=== PATIENT | female | born 1995 | race Caucasian/White ===

== ENCOUNTER → 2021-12-02 01:24 | Outpatient (CLI) | payer OTHER, SELFPAY ==
[2021-12-02 11:08] LABS: SARS-CoV-2 RNA PCR Negative
== END ==
PROVIDERS: Visit Provider Surgery
DX: Z01.812 Encounter for preprocedural laboratory examination (principal); Z20.822 Contact with and (suspected) exposure to COVID-19
CPT/HCPCS: C9803; U0003; U0005

== ENCOUNTER 2021-12-05 00:52 | Day surgery (SDC) | payer OTHER, SELFPAY ==
[2021-12-01 08:34] VITALS: BMI 23.4
--- NOTE | 2021-12-01 08:47 | PC.NURSE ---
Report to the Outpatient Waiting Room, entrance under the green pavilion located off [facility], at time on date . OR Time: . - You and your visitor will be asked a series of questions to screen for COVID 19 for your protection. - A mask is required within the hospital. Preoperative COVID Testing Requirements: No COVID Test needed if: (proof is required; if not received patient will have Rapid Test prior to entry) - Patient has received COVID Vaccine at least 14 days prior to procedure date or - Patient has positive COVID test result within last 90 days of surgery date. COVID Test needed if above criteria is not met If not COVID vaccinated a COVID test must be conducted within 72 hours of surgery and patient is asked to isolate self from time of testing until procedure. You will go to the [facility] for your COVID testing. The [facility] is located at the corner of [address] [facility]. You will only be called if COVID results are positive and your surgeon may reschedule your elective surgery date. Patients may have clear liquids (water, carbonated beverages, clear teas, apple juice) until 3 hours prior to surgery with a maximum of 20 ounces. - No food from midnight until time of surgery - Infants may have breast milk until 4 hours before surgery, infant formula 6 hours prior to surgery. - Children will be allowed to drink immediately following surgery. If applicable, please bring a bottle or sippy cup to assist with drinking. Juice, water, soda, and popsicles are readily available. For infants on formula, please bring formula the day of surgery. Pacifiers are allowed. Take the following medications with a SIP of water the morning of surgery: Medications to discontinue per physician Date to take last dose Please no make-up, nail croatian, hairspray, perfume, deodorant, or body powder the day of surgery. No jewelry (including any body piercings) or valuables the day of surgery, leave them at home. Please take a shower or bath the night before, or the morning of, surgery with an antibacterial soap. Wear comfortable, loose fitting clothing. Children are encouraged to wear pajamas. - Jewelry must be removed prior to entering the operating room. Rings and piercings that are not removed may be cut off. - The hospital will not accept responsibility for valuables. - Please leave all valuables, including medications, at home the day of surgery. If you are going home after surgery, a licensed vending route driver must drive you home. - NO public transportation without another adult. - We recommend that an adult stay with you for 24 hours following discharge. - We also recommend that you do not drive, make important decision, drink alcoholic beverages, or take any drugs that were not prescribed by your health care provider for at least 24 hours after your discharge time. For Pediatric surgeries, we recommend two adults accompany the child home (only one inside the building at this time). One visitor will be allowed to accompany the patient into the hospital. Patients visitor will be instructed to remain with patient at all times or leave the building. We will allow the visitor to come back to the postoperative area when patient is ready. Follow any additional instructions given to you from your surgeon. Telephone instructions given to and asked if any additional questions and then verbalized understanding. Patient advised to call surgeon office or pre surgery nurse liaison [phone] if any additional questions.
--- NOTE | 2021-12-01 10:29 | PC.NURSE ---
Report to the Outpatient Waiting Room, entrance under the green pavilion located off [facility], at time 1100 on date 12/05/21. OR Time:1300. - You and your visitor will be asked a series of questions to screen for COVID 19 for your protection. - A mask is required within the hospital. Preoperative COVID Testing Requirements: No COVID Test needed if: (proof is required; if not received patient will have Rapid Test prior to entry) - Patient has received COVID Vaccine at least 14 days prior to procedure date or - Patient has positive COVID test result within last 90 days of surgery date. COVID Test needed if above criteria is not met If not COVID vaccinated a COVID test must be conducted within 72 hours of surgery and patient is asked to isolate self from time of testing until procedure. You will go to the [facility] for your COVID testing. [facility] is located at the corner of [address] [facility]. You will only be called if COVID results are positive and your surgeon may reschedule your elective surgery date. Patients may have clear liquids (water, carbonated beverages, clear teas, apple juice) until 3 hours prior to surgery with a maximum of 20 ounces. - No food from midnight until time of surgery - Infants may have breast milk until 4 hours before surgery, infant formula 6 hours prior to surgery. - Children will be allowed to drink immediately following surgery. If applicable, please bring a bottle or sippy cup to assist with drinking. Juice, water, soda, and popsicles are readily available. For infants on formula, please bring formula the day of surgery. Pacifiers are allowed. Take the following medications with a SIP of water the morning of surgery: n/a Medications to discontinue per physician culturelle Date to take last dose 12/02/21 Please no make-up, nail persian, hairspray, perfume, deodorant, or body powder the day of surgery. No jewelry (including any body piercings) or valuables the day of surgery, leave them at home. Please take a shower or bath the night before, or the morning of, surgery with an antibacterial soap. Wear comfortable, loose fitting clothing. Children are encouraged to wear pajamas. - Jewelry must be removed prior to entering the operating room. Rings and piercings that are not removed may be cut off. - The hospital will not accept responsibility for valuables. - Please leave all valuables, including medications, at home the day of surgery. If you are going home after surgery, a licensed seasonal driver must drive you home. - NO public transportation without another adult. - We recommend that an adult stay with you for 24 hours following discharge. - We also recommend that you do not drive, make important decision, drink alcoholic beverages, or take any drugs that were not prescribed by your health care provider for at least 24 hours after your discharge time. For Pediatric surgeries, we recommend two adults accompany the child home (only one inside the building at this time). One visitor will be allowed to accompany the patient into the hospital. Patients visitor will be instructed to remain with patient at all times or leave the building. We will allow the visitor to come back to the postoperative area when patient is ready. Follow any additional instructions given to you from your surgeon. Telephone instructions given to Jigna Galvan_and asked if any additional questions and then verbalized understanding. Patient advised to call surgeon office or pre surgery nurse liaison [phone] if any additional questions.
[2021-12-05] VITALS (8 sets, daily range): BP systolic 98–116; BP diastolic 52–73; PULSE 62–95; RESP 14–19; TEMP 36.2–36.8; O2SAT 98–100
[2021-12-05] MEDS: LACTATED RINGERS 1,000 ML 30 ML IV CONT ×2 (11:00→13:23)
[2021-12-05] MEDS: ACETAMINOPHEN 500 MG TABLET 1000 MG PO (11:13)
[2021-12-05] MEDS: KETOROLAC 15 MG/ML VIAL (*BKC) IV PUSH (11:14)
--- NOTE | 2021-12-05 12:16 | P.PNAN_ITS ---
Anes - Initial Pre Proc Eval Procedure: Operation Date: 12/05/21 13:00 Proposed Procedures p Umbilical Hernia Repair with Possible Mesh - Hasmukh Swanson DO Date/Time: 12/05/21 12:16 Surgeon: Hasmukh Swanson DO Pre Op Diagnosis: Umbilical Hernia Patient Data Age: 26 Gender: F Height: 1.65 m Weight: 65.85 kg Last Vital Signs Temp 36.8 C 12/05/21 12:01 Pulse 94 12/05/21 12:01 Resp 16 12/05/21 12:01 BP 110/59 L 12/05/21 12:01 Pulse Ox 100 12/05/21 12:01 Allergies Allergy/AdvReac Type Severity Reaction Status Date / Time Penicillins Allergy Mild Other Verified 12/05/21 12:00 Home Medications Medication Instructions Recorded Confirmed Type norgestimate-ethinyl estradiol 1 tablet PO DAILY 11/18/21 12/05/21 History 0.18 mg/0.215mg/0.25mg-35 mcg(28)tablet Lactobacillus rhamnosus GG 1 cap PO DAILY 12/01/21 12/05/21 History [Culturelle] Patient hx anesthesia problems: none Family hx anesthesia problems: none Results Review: All pre-operative results and documents have been reviewed as part of the pre-operative evaluation. [facility] Surgical History Surgical History [place] teeth extracted Social History Social History Smoking status: Never smoker Alcohol intake: current Substance use: never Living arrangements: with family Additional occupation/education comments: talent acquisition Spiritual care concerns: No Anes - Eval Final PreProcedure Day of Procedure 12/05/21 12:16 Patient weight: normal Heart: regular rate and rhythm Lungs: clear to auscultation and normal air movement Airway: Mallampati scale class 1 Neurological: alert and oriented Last oral intake: >/= 8 hours ASA classification: I Emergent: no Anesthetic plan: proceed Anesthesia type and monitoring: general ETT and standard monitoring Results Review: All pre-operative results and documents have been reviewed as part of the pre-operative evaluation. Informed Consent: The patient's anesthetic plan and its attendant risks and benefits were discussed with the patient/family/POA. Questions were solicited and answers provided to the satisfaction of the patient/family/POA.
--- NOTE | 2021-12-05 12:35 | WPDHPUPDATE1 ---
History and Physical Update Update Date/Time: 12/05/21 12:35 History and Physical has been reviewed, including an updated exam of the patient. There are NO changes in the patient's condition. Risks, benefits, and alternatives have been discussed and questions answered. Patient agrees to proceed with procedure.
[2021-12-05] MEDS: ceFAZolin 2 GM/D5W 50 ML 2 GM/50 ML BAG IVPB (12:47)
--- NOTE | 2021-12-05 13:22 | W.PM.PROC2 ---
Procedure Note - Detailed Date of Procedure 12/05/21 Pre-op Diagnosis Umbilical Hernia Post-op Diagnosis Same Procedure Performed Umbilical hernia repair Surgeon Hasmukh Swanson, DO Anesthesia General and Local (0.5% bupivacaine with epinephrine) Indications This is a 26-year-old woman who presents with an umbilical hernia that she noticed a couple years ago. She states that this started out as a small bulge just above her umbilicus. She was not having much pain initially, but more recently she has noticed increased pain with exercise. She is found to have a small reducible umbilical hernia. Discussions were made with the patient about treatment options and decision was made to proceed with umbilical hernia repair with possible mesh. Findings Umbilical hernia repair was performed. The patient was found to have a 4-5 mm umbilical hernia containing preperitoneal fat. The hernia sac was excised and the hernia defect was carefully inspected. Due to the small size of the hernia the decision was made to close this primarily with 0 Ethibond [id number] sutures. No mesh was placed. Description of Procedure Procedure as well as risks, benefits, and alternatives were discussed with the patient. Written consent was obtained and placed in chart prior to procedure. Patient was brought back to surgical suite. She was placed supine on operating table. Time-out was done to confirm patient and procedure. She was then intubated by the anesthesia department. Her abdomen was prepped and draped in sterile fashion using chlorhexidine prep. 0.5% bupivacaine with epinephrine was infiltrated locally around the hernia. A 2 cm curvilinear incision was made at the superior edge of the umbilicus using a 15 blade scalpel. Electrocautery was used for hemostasis and for careful dissection around the hernia sac. The hernia sac was carefully dissected free all the way down to the level of the fascia and then it was transected using electrocautery. The hernia sac was sent for pathology. The hernia defect was then measured. This was measuring only about 4-5 mm. The fascia was closed to repair the hernia using 0 Ethibond [id number] sutures. A total of 2 sutures were placed transversely to approximate the fascia without tension. One final inspection was made around the area no other abnormalities were noted. 0.5% bupivacaine with epinephrine was infiltrated locally around the fascia. The deep dermis was then reapproximated using 3-0 Vicryl simple interrupted sutures. The skin was approximated using 4-0 Monocryl running subcuticular suture. Exofin glue was then applied on top. The patient was then awakened from anesthesia, extubated, and transferred to recovery. Estimated Blood Loss 5 Pathology Yes (Umbilical hernia sac) Complications No immediate complications Condition Stable Disposition Same day
== END 2021-12-05 15:08 | disposition home or self-care (01) ==
PROVIDERS: PCP Physician Assistant Medical; Visit Provider Surgery
PROC: (CPT 49585; principal; 2021-12-05 13:00)
DX: K42.9 Umbilical hernia without obstruction or gangrene (principal)
CPT/HCPCS: 49585; 88302; A9270; C9803; J0690; J1100; J1885; J2250; J2405; J2704; J3010; J7120; U0003; U0005